=== PATIENT | male | born 1950 | race Caucasian/White ===

== ENCOUNTER → 2018-09-01 11:33 | Outpatient (CLI) | payer SELFPAY ==
[2018-09-01 12:42] LABS: Urine Drug scr, USCG NIDA See Separate Report
== END ==
DX: Z02.89 Encounter for other administrative examinations (principal)
CPT/HCPCS: 81099

== ENCOUNTER → 2018-12-20 19:05 | Outpatient (REF) | payer OTHER, SELFPAY ==
[2018-12-20 20:35] LABS: Collection Time Urine 24 Hours; Protein (Total) Urine Random 309 mg/dL (0-12); Total Protein 24 Hour Urine 3631 mg/day (42-225); Total Volume Urine 1175 mL
== END ==
LOC: LAB 19:05
PROVIDERS: Visit Provider Family Medicine Geriatric Medicine
DX: N04.9 Nephrotic syndrome with unspecified morphologic changes (principal); R80.0 Isolated proteinuria
CPT/HCPCS: 84156

== ENCOUNTER → 2018-12-21 18:40 | Outpatient (REF) | payer OTHER, SELFPAY ==
[2018-12-21 18:55] LABS: Add Manual Diff / Slide Review NO; Basophils Absolute Auto 100 /uL (0-100); Basophils Percent Auto 1.2 % (0-2); Eosinophils Absolute Auto 100 /uL (0-450); Hematocrit 51.8 % (41-53); Hemoglobin 17.5 g/dL (13.5-17.5); Lymphocytes Absolute Auto 2100 /uL (1100-4500); Lymphocytes Percent Auto 42.8 % (25-40); Mean Corpuscular HGB Conc 33.8 % (30-36); Mean Corpuscular Hemoglobin 30.5 PG (26-34); Monocytes Absolute Auto 500 /uL (0-900); Monocytes Percent Auto 10.1 % (3-14); Neutrophils Absolute Auto 2100 /uL (1500-7000); Neutrophils Percent Auto 42.9 % (50-75); Platelet Count 211 X10^3/uL (150-400); Red Blood Cell Count 5.76 X10^6/uL (4.5-5.9); Red Cell Distribution Width 13.9 % (11.6-14.8); White Blood Cell Count 4.8 X10^3/uL (4.5-11.0)
[2018-12-21 19:03] LABS: Alanine Aminotransferase 103 IU/L (21-72); Albumin 3.2 g/dL (3.5-5.0); Albumin Globulin Ratio 1.1 (1.0-2.8); Alkaline Phosphatase 51 U/L (38-126); Aspartate Aminotransferase 90 IU/L (17-59); Bilirubin Total 0.5 mg/dL (0.2-1.3); Blood Urea Nitrogen 18 mg/dL (9-20); Calcium 9.3 mg/dL (8.4-10.2); Carbon Dioxide 31 mmol/L (22-32); Chloride 103 mmol/L (98-107); Estimated Glomerular Filt Rate > 60.0 mL/min (>60); Glucose 79 mg/dL (80-110); HEMOLYSIS < 15 (0-50); Potassium 4.9 mmol/L (3.4-5.1); Sodium 140 mmol/L (137-145); Total Protein 6.2 g/dL (6.3-8.2)
[2018-12-21 19:45] LABS: Collection Time Urine 24 Hours; Creatinine Urine Random 100.4 mg/dL; Patient Height Urine 68 inches; Patient Weight Urine 180 lbs; Total Volume Urine 1175 mL
[2018-12-21 20:19] LABS: Creat Clearance, Corrected 72.8 mL/MIN; Creatinine Clearance Urine 81.9 mL/MIN
== END ==
LOC: LAB 18:40
PROVIDERS: Visit Provider Family Medicine Geriatric Medicine
DX: N04.9 Nephrotic syndrome with unspecified morphologic changes (principal); B19.20 Unspecified viral hepatitis C without hepatic coma
CPT/HCPCS: 36415; 80053; 82575; 85025